=== PATIENT | female | born 1940 | race Caucasian/White ===

== ENCOUNTER 2020-12-10 11:43 | Inpatient (IN) | payer MEDICARE ==
[2020-12-10 13:28] LABS: #Monocytes 0.7 10x3/uL (0.0-1.1); #Neutrophils 3.4 10x3/uL (1.5-8.4); %Basophils 0.6 % (0.0-2.0); %Eosinophils 0.4 % (0.0-6.0); %Lymphocytes 10.1 % (18.0-47.0); %Monocytes 14.7 % (0.0-10.0); %Neutrophils 73.6 % (40.0-75.0); Hemoglobin 10.1 g/dL (12.0-15.5); Mean Corpuscular HGB CONC 31.6 g/dL (32.0-36.0); Mean Corpuscular Hemoglobin 30.4 pg (27.0-33.0); Mean Corpuscular Volume 96.4 fl (81.6-98.3); Mean Platelet Volume 9.9 fl (7.4-10.4); Platelet Count 130 10x3/uL (150-450); RBC Distribution Width 13.4 % (11.5-14.5); Red Blood Cell (RBC) Count 3.32 10x6/uL (3.90-5.03); White Blood Cell (WBC) Count 4.6 10x3/uL (3.5-10.5)
[2020-12-10 13:41] LABS: ALT (SGPT) 12 U/L (8-55); AST (SGOT) 19 U/L (5-34); Albumin 3.9 g/dL (3.4-4.8); Alkaline Phosphatase 45 U/L (40-110); Anion Gap 14 mmol/L (10-20); BUN (Urea Nitrogen) 24 mg/dL (9.8-20.1); Bilirubin, Total 0.7 mg/dL (0.2-1.2); Calc. Creatinine Clearance 0 mL/min (70-130); Calcium 10.2 mg/dL (7.8-10.44); Carbon Dioxide 31 mmol/L (23-31); Chloride 97 mmol/L (98-107); Globulin 2.4 g/dL (2.4-3.5); Glucose 226 mg/dL (83-110); Potassium 4.4 mmol/L (3.5-5.1); Protein, Total 6.3 g/dL (5.8-8.1); Sodium 138 mmol/L (136-145)
[2020-12-10 13:55] LABS: SARS-CoV-2 NAA Rapid Test DETECTED (NotDetected)
[2020-12-10 14:18] LABS: Bilirubin Neg (Negative); Blood, Urine Negative (Negative); Clarity Clear (Clear); Glucose, Urine (Dipstick) Normal (Negative); Ketone, Urine Negative (Negative); Leukocyte Negative (Negative); Nitrite Negative (Negative); Protein, Urine (Dipstick) 15 mg/dl (Neg-Trace); Specific Gravity, Urine 1.005 (1.002-1.036); Urobilinogen Normal mg/dL (Less than 2)
[2020-12-10] MEDS ORDERED: traMADol HCl 50 MG TAB PO PRN (14:21)
[2020-12-10] MEDS ORDERED: Insulin Regular 300 UNITS/3 ML VIAL SC PRN (14:23)
[2020-12-10] MEDS ORDERED: Ondansetron PF 4 MG/2 ML Vial IVP PRN (14:23)
[2020-12-10] MEDS ORDERED: Dextrose 50% Abboject 50 ML SYRINGE SLOW IVP PRN (14:23)
[2020-12-10] MEDS ORDERED: Dextrose 5% in Water 1,000 ML IV PRN (14:23)
[2020-12-10] MEDS ORDERED: Acetaminophen 325 MG TAB PO PRN (14:23)
[2020-12-10] MEDS ORDERED: Dexamethasone 6 MG in Sodium Chloride 0.9% 50 ML IVPB SCH (14:28)
[2020-12-10] MEDS ORDERED: Enoxaparin Sodium 40 MG/0.4 ML SYRINGE SC SCH (14:30)
[2020-12-10] MEDS ORDERED: Lactated Ringer's 1,000 ML IV SCH (15:45)
[2020-12-10] MEDS ORDERED: Zinc Sulfate 220 MG CAP PO SCH (16:00)
[2020-12-10] MEDS ORDERED: Dexamethasone 4 mg/ml Vial SLOW IVP SCH (16:00)
[2020-12-10] MEDS ORDERED: hydrALAZINE 25 MG TAB ONE (16:22)
[2020-12-10] MEDS ORDERED: Flecainide 50 MG TAB PO SCH (17:00)
[2020-12-10] MEDS ORDERED: Carvedilol 12.5 MG TAB PO SCH (17:15)
[2020-12-10] MEDS ORDERED: REMDESIVIR 200 MG in Sodium Chloride 0.9% 250 ML 210 ML IV SCH (18:30)
[2020-12-10] MEDS: hydrALAZINE 25 MG TAB PO SCH ×2 (18:33→20:59)
[2020-12-10 18:52] VITALS: BMI 23.3
[2020-12-10] MEDS: cloNIDine 0.1 MG TAB PO SCH (20:59)
[2020-12-10] MEDS: Carvedilol 12.5 MG TAB PO SCH (20:59)
[2020-12-10] MEDS: PARoxetine 20 MG TAB PO SCH (21:00)
[2020-12-10] MEDS: HumaLOG 300 UNITS/3 ML VIAL SC PRN (21:06)
[2020-12-11] MEDS: Doxazosin 2 MG TAB PO SCH ×2 (05:09→20:20)
[2020-12-11] MEDS: HumaLOG 300 UNITS/3 ML VIAL SC PRN ×3 (05:13→20:50)
[2020-12-11 05:30] LABS: ALT (SGPT) 11 U/L (8-55); AST (SGOT) 18 U/L (5-34); Albumin 3.3 g/dL (3.4-4.8); Alkaline Phosphatase 34 U/L (40-110); Bilirubin, Direct 0.2 mg/dL (0.1-0.3); Bilirubin, Total 0.5 mg/dL (0.2-1.2); Protein, Total 5.4 g/dL (5.8-8.1)
[2020-12-11 05:32] LABS: Anion Gap 17 mmol/L (10-20); BUN (Urea Nitrogen) 27 mg/dL (9.8-20.1); Calc. Creatinine Clearance 28 mL/min (70-130); Calcium 9.2 mg/dL (7.8-10.44); Carbon Dioxide 25 mmol/L (23-31); Chloride 99 mmol/L (98-107); Glucose 199 mg/dL (83-110); Sodium 137 mmol/L (136-145)
[2020-12-11 05:36] LABS: #Monocytes 0.2 10x3/uL (0.0-1.1); %Basophils 0.2 % (0.0-2.0); %Lymphocytes 9.3 % (18.0-47.0); %Monocytes 3.7 % (0.0-10.0); %Neutrophils 86.6 % (40.0-75.0); Hemoglobin 9.6 g/dL (12.0-15.5); Mean Corpuscular HGB CONC 31.7 g/dL (32.0-36.0); Mean Corpuscular Hemoglobin 30.3 pg (27.0-33.0); Mean Corpuscular Volume 95.6 fl (81.6-98.3); Mean Platelet Volume 10.5 fl (7.4-10.4); Platelet Count 128 10x3/uL (150-450); RBC Distribution Width 13.6 % (11.5-14.5); Red Blood Cell (RBC) Count 3.17 10x6/uL (3.90-5.03); White Blood Cell (WBC) Count 4.6 10x3/uL (3.5-10.5)
[2020-12-11] MEDS ORDERED: Enoxaparin Sodium 40 MG/0.4 ML SYRINGE SC SCH (09:00)
[2020-12-11] MEDS: Bupropion 150 MG XL TAB PO SCH (09:09)
[2020-12-11] MEDS: Aspirin 81 mg Enteric Coated Tablet PO SCH (09:09)
[2020-12-11] MEDS: Zinc Sulfate 220 MG CAP PO SCH (09:09)
[2020-12-11] MEDS: Atorvastatin Calcium 20 MG TAB PO SCH (09:09)
[2020-12-11] MEDS: Clopidogrel Bisulfate 75 MG TAB PO SCH (09:09)
[2020-12-11] MEDS: Carvedilol 12.5 MG TAB PO SCH ×2 (09:09→20:18)
[2020-12-11] MEDS: Ferrous Sulfate 325 MG TAB PO SCH (09:09)
[2020-12-11] MEDS: Ascorbic Acid 500 mg Chewable Tablet PO SCH (09:10)
[2020-12-11] MEDS: Enoxaparin Sodium 30 MG/0.3 ML SYRINGE SC SCH (09:10)
[2020-12-11] MEDS: hydrALAZINE 25 MG TAB PO SCH ×4 (09:10→20:18)
[2020-12-11] MEDS: Dexamethasone 20 MG/5 ML VIAL SLOW IVP SCH (09:10)
[2020-12-11] MEDS: REMDESIVIR 100 MG in Sodium Chloride 0.9% 250 ML 230 ML IV SCH (17:45)
[2020-12-11] MEDS: cloNIDine 0.1 MG TAB PO SCH (20:18)
[2020-12-11] MEDS: PARoxetine 20 MG TAB PO SCH (20:18)
[2020-12-12] MEDS: HumaLOG 300 UNITS/3 ML VIAL SC PRN ×4 (02:07→21:20)
[2020-12-12 05:11] LABS: ALT (SGPT) 12 U/L (8-55); AST (SGOT) 18 U/L (5-34); Albumin 3.1 g/dL (3.4-4.8); Alkaline Phosphatase 39 U/L (40-110); Bilirubin, Direct 0.2 mg/dL (0.1-0.3); Bilirubin, Total 0.4 mg/dL (0.2-1.2); Protein, Total 4.9 g/dL (5.8-8.1)
[2020-12-12] MEDS: Aspirin 81 mg Enteric Coated Tablet PO SCH (07:49)
[2020-12-12] MEDS: Enoxaparin Sodium 30 MG/0.3 ML SYRINGE SC SCH (07:49)
[2020-12-12] MEDS: Zinc Sulfate 220 MG CAP PO SCH (07:49)
[2020-12-12] MEDS: Bupropion 150 MG XL TAB PO SCH (07:49)
[2020-12-12] MEDS: hydrALAZINE 25 MG TAB PO SCH ×4 (07:49→21:03)
[2020-12-12] MEDS: Ascorbic Acid 500 mg Chewable Tablet PO SCH (07:49)
[2020-12-12] MEDS: Dexamethasone 20 MG/5 ML VIAL SLOW IVP SCH (07:50)
[2020-12-12] MEDS: Carvedilol 12.5 MG TAB PO SCH ×2 (07:50→21:01)
[2020-12-12] MEDS: Cholecalciferol (Vitamin D3) 400 UNITS TAB PO SCH (07:50)
[2020-12-12] MEDS: Ferrous Sulfate 325 MG TAB PO SCH (07:50)
[2020-12-12] MEDS: Clopidogrel Bisulfate 75 MG TAB PO SCH (07:50)
[2020-12-12] MEDS: Atorvastatin Calcium 20 MG TAB PO SCH (07:50)
[2020-12-12] MEDS: REMDESIVIR 100 MG in Sodium Chloride 0.9% 250 ML 230 ML IV SCH (17:11)
[2020-12-12] MEDS: Doxazosin 2 MG TAB PO SCH (20:59)
[2020-12-12] MEDS: PARoxetine 20 MG TAB PO SCH (21:02)
[2020-12-12] MEDS: cloNIDine 0.1 MG TAB PO SCH (21:05)
[2020-12-13] MEDS: HumaLOG 300 UNITS/3 ML VIAL SC PRN ×4 (05:25→20:35)
[2020-12-13 07:11] LABS: ALT (SGPT) 14 U/L (8-55); AST (SGOT) 20 U/L (5-34); Albumin 3.3 g/dL (3.4-4.8); Alkaline Phosphatase 47 U/L (40-110); Anion Gap 15 mmol/L (10-20); BUN (Urea Nitrogen) 47 mg/dL (9.8-20.1); Bilirubin, Direct 0.2 mg/dL (0.1-0.3); Bilirubin, Total 0.4 mg/dL (0.2-1.2); Calc. Creatinine Clearance 26 mL/min (70-130); Calcium 9.1 mg/dL (7.8-10.44); Carbon Dioxide 26 mmol/L (23-31); Chloride 98 mmol/L (98-107); Globulin 1.9 g/dL (2.4-3.5); Glucose 165 mg/dL (83-110); Potassium 3.5 mmol/L (3.5-5.1); Protein, Total 5.2 g/dL (5.8-8.1); Sodium 135 mmol/L (136-145)
[2020-12-13] MEDS: Carvedilol 12.5 MG TAB PO SCH ×2 (08:11→20:09)
[2020-12-13] MEDS: Cholecalciferol (Vitamin D3) 400 UNITS TAB PO SCH (08:11)
[2020-12-13] MEDS: hydrALAZINE 25 MG TAB PO SCH ×4 (08:11→20:18)
[2020-12-13] MEDS: Ferrous Sulfate 325 MG TAB PO SCH (08:11)
[2020-12-13] MEDS: Bupropion 150 MG XL TAB PO SCH (08:11)
[2020-12-13] MEDS: Atorvastatin Calcium 20 MG TAB PO SCH (08:11)
[2020-12-13] MEDS: Ascorbic Acid 500 mg Chewable Tablet PO SCH (08:11)
[2020-12-13] MEDS: Clopidogrel Bisulfate 75 MG TAB PO SCH (08:11)
[2020-12-13] MEDS: Zinc Sulfate 220 MG CAP PO SCH (08:12)
[2020-12-13] MEDS: Dexamethasone 20 MG/5 ML VIAL SLOW IVP SCH (08:12)
[2020-12-13] MEDS: Aspirin 81 mg Enteric Coated Tablet PO SCH (08:12)
[2020-12-13] MEDS: Enoxaparin Sodium 30 MG/0.3 ML SYRINGE SC SCH (08:12)
[2020-12-13] MEDS: REMDESIVIR 100 MG in Sodium Chloride 0.9% 250 ML 230 ML IV SCH (17:06)
[2020-12-13] MEDS: PARoxetine 20 MG TAB PO SCH (20:09)
[2020-12-13] MEDS: cloNIDine 0.1 MG TAB PO SCH (20:10)
[2020-12-13] MEDS: Doxazosin 2 MG TAB PO SCH (20:10)
[2020-12-14 06:50] LABS: ALT (SGPT) 13 U/L (8-55); AST (SGOT) 19 U/L (5-34); Albumin 3.4 g/dL (3.4-4.8); Alkaline Phosphatase 40 U/L (40-110); Anion Gap 16 mmol/L (10-20); BUN (Urea Nitrogen) 47 mg/dL (9.8-20.1); Bilirubin, Direct 0.2 mg/dL (0.1-0.3); Bilirubin, Total 0.5 mg/dL (0.2-1.2); Calc. Creatinine Clearance 27 mL/min (70-130); Calcium 9.2 mg/dL (7.8-10.44); Carbon Dioxide 27 mmol/L (23-31); Chloride 100 mmol/L (98-107); Globulin 2.1 g/dL (2.4-3.5); Glucose 82 mg/dL (83-110); Potassium 3.6 mmol/L (3.5-5.1); Protein, Total 5.5 g/dL (5.8-8.1); Sodium 139 mmol/L (136-145)
[2020-12-14 08:22] VITALS: TEMP 98.4
[2020-12-14] MEDS ORDERED: Dexamethasone 4 mg/ml Vial SLOW IVP SCH (09:00)
[2020-12-14] MEDS: Enoxaparin Sodium 30 MG/0.3 ML SYRINGE SC SCH (09:29)
[2020-12-14] MEDS: Atorvastatin Calcium 20 MG TAB PO SCH (09:31)
[2020-12-14] MEDS: Carvedilol 12.5 MG TAB PO SCH (09:31)
[2020-12-14] MEDS: Bupropion 150 MG XL TAB PO SCH (09:31)
[2020-12-14] MEDS: Aspirin 81 mg Enteric Coated Tablet PO SCH (09:31)
[2020-12-14] MEDS: hydrALAZINE 25 MG TAB PO SCH ×3 (09:31→17:28)
[2020-12-14] MEDS: Cholecalciferol (Vitamin D3) 400 UNITS TAB PO SCH (09:31)
[2020-12-14] MEDS: Zinc Sulfate 220 MG CAP PO SCH (09:31)
[2020-12-14] MEDS: Ferrous Sulfate 325 MG TAB PO SCH (09:32)
[2020-12-14] MEDS: Ascorbic Acid 500 mg Chewable Tablet PO SCH (09:32)
[2020-12-14] MEDS: Clopidogrel Bisulfate 75 MG TAB PO SCH (09:32)
[2020-12-14 10:32] LABS: #Monocytes 0.5 10x3/uL (0.0-1.1); #Neutrophils 5.9 10x3/uL (1.5-8.4); %Lymphocytes 9.2 % (18.0-47.0); %Monocytes 6.7 % (0.0-10.0); %Neutrophils 83.7 % (40.0-75.0); Hemoglobin 10.1 g/dL (12.0-15.5); Mean Corpuscular HGB CONC 33.1 g/dL (32.0-36.0); Mean Corpuscular Hemoglobin 30.4 pg (27.0-33.0); Mean Corpuscular Volume 91.9 fl (81.6-98.3); Mean Platelet Volume 10.8 fl (7.4-10.4); Platelet Count 127 10x3/uL (150-450); RBC Distribution Width 13.8 % (11.5-14.5); Red Blood Cell (RBC) Count 3.32 10x6/uL (3.90-5.03)
[2020-12-14 16:28] VITALS: BP 133/74
[2020-12-14] MEDS: HumaLOG 300 UNITS/3 ML VIAL SC PRN (17:28)
[2020-12-14] MEDS: REMDESIVIR 100 MG in Sodium Chloride 0.9% 250 ML 230 ML IV SCH (17:28)
== END 2020-12-14 19:06 | disposition home or self-care (01) | DRG 177 ==
LOC: CSHERS 11:43 → CSHERHOLD 15:26 → CSHTELE 18:04
PROVIDERS: ADMIT Internal Medicine; ATTEND Hospitalist
PROC: 8E0ZXY6 Isolation (ICD-10-PCS; principal; 2020-12-10)
PROC: XW033E5 Introduction of Remdesivir Anti-infective into Peripheral Vein, Percutaneous Approach, New Technology Group 5 (ICD-10-PCS; 2020-12-10)
DX: U07.1 COVID-19 (principal); J12.82 Pneumonia due to coronavirus disease 2019; J96.01 Acute respiratory failure with hypoxia; I10 Essential (primary) hypertension; I48.91 Unspecified atrial fibrillation; I25.10 Atherosclerotic heart disease of native coronary artery without angina pectoris; Z79.01 Long term (current) use of anticoagulants; Z79.82 Long term (current) use of aspirin; Z79.899 Other long term (current) drug therapy; N28.9 Disorder of kidney and ureter, unspecified
CPT/HCPCS: 0240U; 36415; 36416; 71045; 80048; 80053; 80076; 81003; 85025; 93005; 93010; 94760; J1100; J1650; J1815; J2405; J7050; J7120